=== PATIENT | male | born 1955 | race Caucasian/White ===

== ENCOUNTER → 2017-03-02 | Outpatient (CLI) | payer BC, OTHER ==
[~2017-03-02] MED LIST: BISM262T7 PO; CHOL4PAC2 PO; LEVO112T2 PO; LEVO125T5 PO; RANI150C PO
== END | disposition home or self-care (01) ==
LOC: CFH 14:57
PROVIDERS: ATTEND Surgery
DX: R10.31 Right lower quadrant pain (principal)
CPT/HCPCS: 76857

== ENCOUNTER 2019-06-09 09:00 | Outpatient (CLI) | payer OTHER | END 2019-06-09 23:59 | disposition home or self-care (01) | LOC: CVU 09:00 | PROVIDERS: ATTEND Family Medicine | DX: M79.605 Pain in left leg (principal); M79.604 Pain in right leg | CPT/HCPCS: 93922 ==